=== PATIENT | male | born 1995 | race Caucasian/White ===

== ENCOUNTER 2016-11-03 03:46 | Emergency (ER) | payer BC ==
--- NOTE | 2016-11-03 04:07 | EDPHY ---
H & P Stated Complaint: SYNCOPE WHILE VOIDING AT 2300, LIP LACERATION, HAD EDIBLES AT 6PM HPI/ROS: HPI CHIEF COMPLAINT: Syncope, lip laceration HISTORY OF PRESENT ILLNESS: This patient very pleasant 21-year-old male otherwise healthy no significant medical problems he presents emergency room after he had a syncopal episode. Patient states approximately an hour ago he got up to use the bathroom he got to the bathroom and was urinating any felt very lightheaded. He had no chest pain or shortness of breath. He tried to make it back to his bed and he had a syncopal episode. He fell. He had head strike against the carpeted ground he sustained a right lower lip laceration through and through. Denies any neck pain, headache, facial pain. No other injuries. No history of cardiac disease. He does tell me that he worked in the back yard all day he did not stay well-hydrated today. Additionally patient reports that he smoked marijuana this evening as well as had 80 mg of edible marijuana. He thinks this may have contributed to him passing out. Past Medical History: No medical history Past Surgical History: No surgical history Social History: Smokes marijuana daily, edible marijuana Family History: Denies any significant cardiac family history ROS REVIEW OF SYSTEMS: A comprehensive 10 point review of systems is otherwise negative aside from elements mentioned in the history of present illness. Exam Constitutional appears well nontoxic, triage nursing summary reviewed, vital signs reviewed, awake/alert. Eyes normal conjunctivae and sclera, EOMI, PERRLA. HENT Face: Right lower lip intraoral lip laceration 2 cm in length that goes through to his external lip. 1 cm lac. Midface stable. Dentition intact. The laceration does not go through the vermilion border. moist mucus membranes, no epistaxis, neck supple/ no meningismus, no raccoon eyes. Respiratory clear to auscultation bilaterally, normal breath sounds, no respiratory distress, no wheezing. Cardiovascular rate normal, regular rhythm, no murmur, no edema, distal pulses normal. Gastrointestinal soft, non-tender, no rebound, no guarding, normal bowel sounds, no distension, no pulsatile mass. Genitourinary no CVA tenderness. Musculoskeletal no midline vertebral tenderness, full range of motion, no calf swelling, no tenderness of extremities, no meningismus, good pulses, neurovascularly intact. Skin pink, warm, & dry, no rash, skin atraumatic. Neurologic awake, alert and oriented x 3, AAOx3, moves all 4 extremities equally, motor intact, sensory intact, CN II-XII intact, normal cerebellar, normal vision, normal speech. Psychiatric normal mood/affect. Heme/Lymph/Immune no lymphadenopathy. Differential Diagnosis: Includes but is not limited to in a particular order, micturition syncope, orthostatic syncope, vasovagal syncope, or laceration Medical Decision Making: Plan for this patient will obtain EKG for syncope, I do not feel that he needs blood work or IV fluid bolus. And then will repair his lip laceration. Re-evaluation: Laceration Repair Procedure: Verbal Consent was obtained, Under sterile conditions, The patient had lidocaine with epinephrine used approximately 3ccs to local anesthetize the Lower lip 4cm horizontal Laceration. The wound was copiously irrigated with sterile fluid, the wound was explored for foreign bodies there were none visualized, the wound was explored with a sterile glove to the base. There are no deep structures involved, including no arterial injury. Three interrupted absorbable 5.O Sutures were placed in this patient' s laceration. He had good close approximation of the wound edges. He Tolerated this well. Laceration Repair Procedure: Verbal Consent was obtained, Under sterile conditions, The patient had lidocaine with epinephrine used approximately 1ccs to local anesthetize the 1 CM lower External Lip Laceration. The wound was copiously irrigated with sterile fluid, the wound was explored for foreign bodies there were none visualized, the wound was explored with a sterile glove to the base. There are no deep structures involved, including no arterial injury. ONE 5.O PROLENE interrupted Sutures were placed in this patient's laceration. He had good close approximation of the wound edges. He Tolerated this well. Patient understands to keep both lacerations clean. After eating rinse his mouth out. Try to not get any food particle stuck in the intraoral lip laceration has been repaired. Understands to watch for infection. This includes drainage, swelling, pain, redness or fever return to the ER if he sees this. Additionally he understands to have his external 1 suture removed in 7 days. EKG interpretation by me on record in [facility] system. Impression time of EKG 4:19 a.m., this is sinus rhythm rate of [address] elevation consistent with early [place] pulp pattern. Otherwise no signs of cardiac arrhythmia or ischemia. This EKG was performed he had no chest pain or shortness of breath. Source: Patient - Personal History Current Tetanus/Diphtheria Vaccine: Yes - Medical/Surgical History Hx Asthma: No Hx Chronic Respiratory Disease: No Hx Diabetes: No Hx Cardiac Disease: No Hx Renal Disease: No Hx Cirrhosis: No Hx Alcoholism: No Hx HIV/AIDS: No Hx Splenectomy or Spleen Trauma: No Other PMH: DENIES - Social History Smoking Status: Smoker current status UNK Constitutional: Initial Vital Signs Temperature (C) 36.7 C 11/03/16 03:48 Heart Rate 70 11/03/16 03:48 Respiratory Rate 18 11/03/16 03:48 Blood Pressure 116/67 11/03/16 03:48 O2 Sat (%) 97 11/03/16 03:48 O2 Delivery Mode Room Air Departure - Departure Disposition: Home, Routine, Self-Care Clinical Impression: Laceration Syncope Qualifiers: Syncope type: unspecified Qualified Code(s): R55 - Syncope and collapse Condition: Good Instructions: Laceration (ED), Care For Your Stitches (ED) Additional Instructions: 1. The sutures inside your mouth are absorbable. 2. Keep her wound clean, dry and protected. 3. Watch for signs of infection. 4. You have 1 suture on the outside of her lip that needs to be removed in 7 days.
--- NOTE | 2016-11-03 05:07 | CPEKG ---
Heart Rate: 60 RR Interval: 1000 P-R Interval: 148 QRSD Interval: 98 QT Interval: 420 QTC Interval: 420 P [place]: 56 QRS [place]: 20 T Wave [place]: 67 EKG Severity - NORMAL ECG - EKG Impression: SINUS RHYTHM EKG Impression: ST ELEV, PROBABLE NORMAL EARLY REPOL PATTERN Electronically Signed By: Omar Byrne 09-Nov-2016 16:56:32
[2016-11-03 05:20] VITALS: BP 124/78; PULSE 65; RESP 16; TEMP 97.9; O2SAT 98
== END 2016-11-03 05:20 | disposition home or self-care (01) ==
PROC: 0CQ1XZZ Repair Lower Lip, External Approach (ICD-10-PCS; principal; 2016-11-03)
DX: S01.511A Laceration without foreign body of lip, initial encounter (principal); R55 Syncope and collapse; W18.09XA Striking against other object with subsequent fall, initial encounter; Y92.002 Bathroom of unspecified non-institutional (private) residence as the place of occurrence of the external cause; F17.200 Nicotine dependence, unspecified, uncomplicated